=== PATIENT | female | born 1945 | race Caucasian/White ===

== ENCOUNTER 2018-09-20 09:16 | Day surgery (SDC) | payer MEDICARE, OTHER ==
--- NOTE | 2018-09-09 07:02 | HP ---
HISTORY AND PHYSICAL: DATE OF ADMISSION/SURGERY: 09/20/18 DATE OF OFFICE VISIT: 09/08/18 SURGEON: Tanvi Joya MD * (DICTATED BY BRANDT CRAIG) PROCEDURE: Left third and fourth finger trigger release. CHIEF COMPLAINT: Left hand pain. HISTORY OF PRESENT ILLNESS: Ms. Purvis is a 73-year-old female with over 3- month history of painful left hand and triggering of the left third and fourth fingers. PAST MEDICAL HISTORY: Hypertension, high cholesterol, diabetes, GERD, and sleep apnea. PAST SURGICAL HISTORY: Bilateral total knee arthroplasties, gastric Lap-Band, knee arthroscopy, and cataract removal. CURRENT MEDICATIONS: 1. Paroxetine 30 mg a day. 2. Simvastatin 10 mg daily. 3. Centrum Silver. 4. Loratadine 10 mg a day. 5. VESIcare 10 mg a day. 6. Oxybutynin 10 mg a day. 7. Omeprazole 20 mg a day. 8. Fiber daily. 9. Ramipril 5 mg a day. 10. Metformin 500 mg 2 tabs twice a day. 11. Colace. 12. Ibuprofen as needed. 13. Vitamin C. 14. Vitamin B. 15. Vitamin D. ALLERGIES: To KEFLEX and CODEINE. FAMILY HISTORY: Cancer, diabetes, and coronary artery disease. SOCIAL HISTORY: She is a 73-year-old female. She lives with her . She does not smoke or use drugs. She uses occasional alcohol. REVIEW OF SYSTEMS: A complete 14-point review of systems was reviewed with the patient. Positive for diabetes and GERD. She denies history of DVT, PE, hepatitis, or HIV. She also reports a history of a prior MRSA infection. PHYSICAL EXAMINATION GENERAL: She is well developed, well nourished, in no acute distress. She is alert and oriented x3. Pleasant mood and appropriate affect. VITAL SIGNS: She stands 61 inches tall, weighs 194 pounds. Her blood pressure is 120/74. HEENT: Normocephalic, atraumatic. NECK: Supple. No palpable lymph nodes. PULMONARY: The lungs are clear to auscultation bilaterally. CARDIO: Regular rate and rhythm. Strong S1, S2. ABDOMEN: Soft, nontender, nondistended. NEUROLOGICAL: She is alert and oriented x3. MUSCULOSKELETAL: Left upper extremity: The skin is intact. There are no open wounds or abrasions. There is some tenderness to palpation along the A1 audrey of the left third and fourth fingers and some triggering of the left third and fourth fingers. She has full range of motion of the left wrist. She has intact sensation and a 2+ palpable pulse. ASSESSMENT AND PLAN: Ms. Purvis is a 73-year-old female with left third and fourth finger trigger fingers. She has elected to proceed with trigger finger release of the left third and fourth fingers with Dr. Joya. The surgery is scheduled for 09/20/18. Dr. Joya discussed the risks and benefits of the surgery at today's visit and all of her questions were answered. She will follow up with Dr. Joya 7 to 10 days after the surgery. BRANDT CRAIG [id number]/[facility] #: [id number] MTDD
[~2018-09-20 09:16] MED LIST: Acetaminophen TAB* 325 MG PO PRN; Buffered Lidocaine 1% SYRIN* 1 ML/SYRINGE INTRADERM ONE; Famotidine IV* 10 MG/ML 2 ML (20 mg) IV ONE; HYDROcodone/ACETAMIN 5-325 MG* 1 TAB PO PRN; Lactated Ringers 1000 ML Bag* 1,000 ML IV SCH; Naloxone* 0.4 MG/ML 1 ML VIAL IV PRN; Ondansetron INJ* 2 MG/ML VIAL IV PRN; fentaNYL* 50 MCG/ML 2 ML VIAL (100 MCG VIAL) IV PRN; oxyCODONE/Acetamin 5/325 MG* TAB PO PRN
[2018-09-20] MEDS ORDERED: Famotidine IV* 10 MG/ML 2 ML (20 mg) ONE (09:32)
[2018-09-20] MEDS ORDERED: Lidocaine 1% INJ* 10 MG/ML 30 ML SDV ONE (10:23)
[2018-09-20] MEDS ORDERED: Propofol* 10 MG/ML 20 ML BTL ONE (11:33)
[2018-09-20] MEDS ORDERED: fentaNYL* 50 MCG/ML 2 ML VIAL (100 MCG VIAL) ONE (11:33)
[2018-09-20] MEDS ORDERED: Lidocaine 2% PF * 5 ML VIAL ONE (11:33)
[2018-09-20] MEDS ORDERED: Midazolam* 1 MG/ML 2 ML VIAL (2 MG) ONE (11:33)
[2018-09-20 13:34] VITALS: BP 110/62
--- NOTE | 2018-09-20 13:38 | OP ---
CC: Dr. Joya* OPERATIVE NOTE: DATE OF OPERATION: 09/20/18 - [facility] DATE OF : 47 SURGEON: Tanvi Joya MD. FREELANCE WEB DESIGNER: BRANDT Stepehnson. ANESTHESIOLOGIST: Tian Fishman MD. ANESTHESIA: Local MAC. PRE-OP DIAGNOSIS: Trigger finger, left long and ring finger. POST-OP DIAGNOSIS: Trigger finger, left long and ring finger. OPERATIVE PROCEDURE: Left ring and long finger trigger release. ESTIMATED BLOOD LOSS: Zero. TOURNIQUET TIME: Approximately 15 minutes. INDICATIONS FOR PROCEDURE: Aurora is a 73-year-old female with locking and triggering of her long and ring fingers on the left hand. She presents for trigger finger releases. DESCRIPTION OF PROCEDURE: The patient was brought to the operating room, was given a sedation anesthetic and a local infiltration of 10 cc of 1% plain lidocaine in the palm of her left hand. The skin of her left hand and forearm were prepped and draped in the usual sterile fashion. The hand and forearm were exsanguinated and the tourniquet elevated to 250 mmHg. A transverse incision was made, centered over the middle and ring finger A1 pulleys and we dissected bluntly through the subcutaneous tissue. The A1 pulleys were both incised longitudinally and there was a mild amount of tenosynovitis surrounding the tendons. This was debrided. The wound was irrigated and the skin edges reapproximated with 4-0 nylon suture. The wound was dressed with Xeroform, 4x4 , Webril, and an David wrap. The patient tolerated the procedure well and was brought to the recovery room in good condition. [id number]/[facility] #: [id number] [facility]
== END 2018-09-20 13:11 | disposition home or self-care (01) ==
LOC: OREAST 09:16
PROVIDERS: ATTEND Orthopaedic Surgery
DX: M65.332 Trigger finger, left middle finger (principal); M65.342 Trigger finger, left ring finger; E11.9 Type 2 diabetes mellitus without complications; Z79.84 Long term (current) use of oral hypoglycemic drugs; I10 Essential (primary) hypertension; E78.5 Hyperlipidemia, unspecified; G47.33 Obstructive sleep apnea (adult) (pediatric); F41.9 Anxiety disorder, unspecified
CPT/HCPCS: J2250; J2704; J3010

== ENCOUNTER 2020-03-20 05:42 | Inpatient (IN) ==
[2020-03-20] MEDS ORDERED: Dexamethasone IV 4 MG/ML VIAL 1 ml VIAL IV SLOW PU ONE (06:00)
[2020-03-20] MEDS ORDERED: Lactated Ringers 1000 ml BAG 1,000 ML IV SCH (06:00)
[2020-03-20] MEDS ORDERED: Buffered Lidocaine 1% SYRIN 1 ml INTRADERM ONE ×2 (06:00→06:29)
[2020-03-20] MEDS ORDERED: ceFAZolin 2 GM PREMIX 0 GM/0 ML BAG ONE (06:29)
[2020-03-20] MEDS ORDERED: Dexamethasone IV 4 MG/ML VIAL 1 ml VIAL ONE (06:29)
[2020-03-20] MEDS ORDERED: Vancomycin 1,000 MG VIAL ONE (06:35)
[2020-03-20] MEDS ORDERED: Thrombin 5,000 UNITS 1 APPLIC KIT - topical use - TOPICAL ONE (06:35)
[2020-03-20] MEDS ORDERED: Bacitracin INJECTION 50,000 UNITS ONE ×2 (06:36→07:45)
[2020-03-20] MEDS ORDERED: ceFAZolin 1 GM ADVAN 1 GM ADDV.VIAL IVPB ONE ×2 (06:36→06:45)
[2020-03-20] MEDS ORDERED: Bacitracin OINTMENT TUBE ONE (06:36)
[2020-03-20] MEDS ORDERED: Clindamycin 900 MG/D5W BAG 900 MG/50 ML BAG IVPB ONE (07:06)
[2020-03-20] MEDS ORDERED: Midazolam 2 mg/2 ml VIAL 1 mg/ml 2 ml VIAL (2 mg) ONE (07:24)
[2020-03-20] MEDS ORDERED: fentaNYL 250 mcg/5 ml 50 MCG/ML 5 ml VIAL (250 MCG) ONE (07:24)
[2020-03-20] MEDS ORDERED: Rocuronium 50 mg VIAL 10 mg/ml 5 ml VIAL (50 mg) ONE ×2 (07:24→08:13)
[2020-03-20] MEDS ORDERED: Propofol 10 MG/ML 20 ML BTL ONE (07:26)
[2020-03-20] MEDS ORDERED: Bupivacaine 0.25% w/EPI 10 ML SDV ONE (07:41)
[2020-03-20] MEDS ORDERED: Lidocaine 1% w EPI 1:200,000 SDV 30 ML VIAL ONE (07:41)
[2020-03-20] MEDS ORDERED: Bupivacaine 0.5% SDV PF 30ML VIAL ONE (07:42)
[2020-03-20] MEDS ORDERED: CLINDAMYCIN IVPB ONE (07:46)
[2020-03-20] MEDS ORDERED: [UNRECOGNIZED DRUG - OTHER] IVPB ONE (07:46)
[2020-03-20] MEDS ORDERED: Artificial Tear OPHTH.OINT 3.5 GM ONE (07:48)
[2020-03-20] MEDS ORDERED: Naloxone 0.4 mg VIAL 0.4 mg/ml 1 ml VIAL IV PRN (08:30)
[2020-03-20] MEDS ORDERED: HYDROmorphone 1 MG/1 ML SYRINGE IV PRN (08:30)
[2020-03-20] MEDS ORDERED: Ondansetron 4 mg VIAL 2 MG/ML 2 ml VIAL IV PRN ×2 (08:30→11:17)
[2020-03-20] MEDS ORDERED: fentaNYL 100 mcg/2 ml 50 MCG/ML VIAL ONE ×2 (10:12→11:27)
[2020-03-20] MEDS ORDERED: Ondansetron 4 mg VIAL 2 MG/ML 2 ml VIAL ONE ×2 (10:32→11:56)
[2020-03-20] MEDS ORDERED: Magnesium Hydroxide LIQ 30 ML UDC PO PRN (11:17)
[2020-03-20] MEDS: fentaNYL 100 mcg/2 ml 50 MCG/ML VIAL IV PRN ×4 (11:28→12:02)
[2020-03-20] MEDS ORDERED: Morphine 2 MG/ML SYRINGE IV PRN (11:37)
[2020-03-20] MEDS ORDERED: Albuterol 2.5mg/3 ml (0.083%) NEB.SOLN INH PRN (11:43)
[2020-03-20] MEDS ORDERED: Hydrocortisone 2.5% CREAM(NF) 30 GM TUBE TOPICAL PRN (12:09)
[2020-03-20] MEDS: NS 0.9% 1000 ml BAG 1,000 ML IV SCH ×2 (13:17→22:27)
[2020-03-20] MEDS: Acetaminophen IV 1 GM/100ML 100 ML IVPB SCH ×2 (14:14→22:21)
[2020-03-20] MEDS: Nystatin TOP POWDER 15 GM BTL TOPICAL SCH ×2 (14:16→20:59)
[2020-03-20] MEDS: Clindamycin 900 MG/D5W BAG 900 MG/50 ML BAG IVPB SCH (16:24)
[2020-03-20] MEDS: Enoxaparin 40 MG/0.4 ML SYR SUBCUT SCH (16:27)
[2020-03-20] MEDS: SOLIFENACIN 5 MG PO SCH (17:27)
[2020-03-20] MEDS: Cholecalciferol (VIT D3) 1,000 unit TAB PO SCH (20:57)
[2020-03-21] MEDS: Clindamycin 900 MG/D5W BAG 900 MG/50 ML BAG IVPB SCH ×3 (00:58→16:49)
[2020-03-21 05:43] LABS: ABS Lymphocytes 1.7 10^3/ul (1.0-4.8); ABS Monocytes 0.7 10^3/ul (0-0.8); ABS Neutrophils 6.2 10^3/ul (1.5-7.7); Eosinophil % 0.3 %; Hematocrit 30 % (35-47); Hemoglobin 9.9 g/dL (12.0-16.0); Mean Corpuscular HGB Conc 33 g/dL (31-36); Mean Corpuscular Hemoglobin 29 pg (27-31); Mean Corpuscular Volume 89 fL (80-97); Mean Platelet Volume 6.7 fL (7.4-10.4); Platelet Count 190 10^3/uL (150-450); Red Blood Count 3.37 10^6 /uL (3.70-4.87); Red Cell Distribution Width 14 % (10-15); White Blood Count 8.7 10^3/uL (3.5-10.8)
[2020-03-21] MEDS: Acetaminophen IV 1 GM/100ML 100 ML IVPB SCH (05:49)
[2020-03-21 06:00] LABS: Potassium 4.3 mmol/L (3.5-5.0)
[2020-03-21] MEDS ORDERED: NS 0.9% 1000 ml BAG 1,000 ML IV SCH (07:15)
[2020-03-21] MEDS: Vitamin THERAPEUTIC TAB PO SCH (08:44)
[2020-03-21] MEDS: Cholecalciferol (VIT D3) 1,000 unit TAB PO SCH ×2 (08:45→21:10)
[2020-03-21] MEDS: Nystatin TOP POWDER 15 GM BTL TOPICAL SCH ×3 (08:51→21:11)
[2020-03-21] MEDS ORDERED: Senna TAB 8.6 mg TAB PO PRN (09:00)
[2020-03-21] MEDS ORDERED: Magnesium Hydroxide LIQ 30 ML UDC PO PRN (09:01)
[2020-03-21] MEDS: Enoxaparin 40 MG/0.4 ML SYR SUBCUT SCH (16:50)
[2020-03-21] MEDS: SOLIFENACIN 5 MG PO SCH (18:11)
[2020-03-21] MEDS ORDERED: Estradiol VAG CM (NF) 1 APPLIC TUBE VAGINAL SCH (21:00)
[2020-03-22] MEDS: Clindamycin 900 MG/D5W BAG 900 MG/50 ML BAG IVPB SCH ×2 (01:10→07:56)
[2020-03-22 06:16] LABS: ABS Eosinophils 0.5 10^3/ul (0-0.6); ABS Lymphocytes 1.8 10^3/ul (1.0-4.8); ABS Monocytes 0.5 10^3/ul (0-0.8); ABS Neutrophils 3.2 10^3/ul (1.5-7.7); Eosinophil % 8.1 %; Hematocrit 27 % (35-47); Hemoglobin 9.1 g/dL (12.0-16.0); Lymphocyte % 29.8 %; Mean Corpuscular HGB Conc 34 g/dL (31-36); Mean Corpuscular Hemoglobin 30 pg (27-31); Mean Corpuscular Volume 89 fL (80-97); Mean Platelet Volume 7.1 fL (7.4-10.4); Platelet Count 152 10^3/uL (150-450); Red Blood Count 2.99 10^6 /uL (3.70-4.87); Red Cell Distribution Width 15 % (10-15); White Blood Count 5.9 10^3/uL (3.5-10.8)
[2020-03-22 06:33] LABS: Potassium 4.2 mmol/L (3.5-5.0)
[2020-03-22] MEDS: Cholecalciferol (VIT D3) 1,000 unit TAB PO SCH (07:57)
[2020-03-22] MEDS: Nystatin TOP POWDER 15 GM BTL TOPICAL SCH (07:58)
[2020-03-22] MEDS: Vitamin THERAPEUTIC TAB PO SCH (07:58)
[2020-03-22 11:13] VITALS: BP 125/69
== END 2020-03-22 12:55 | disposition home or self-care (01) | DRG 520 ==
LOC: AA 05:42 → SSU 13:14
PROVIDERS: ADMIT Neurological Surgery; ATTEND Neurological Surgery

== ENCOUNTER 2022-06-11 05:53 | Observation (INO) ==
[2022-06-11] MEDS ORDERED: Buffered Lidocaine 1% SYRIN 1 ml INTRADERM ONE ×2 (06:00)
[2022-06-11] MEDS ORDERED: Lactated Ringers 1000 ml BAG 1,000 ML IV SCH ×2 (06:00→11:00)
[2022-06-11] MEDS ORDERED: Clindamycin 900 MG/D5W BAG 900 MG/50 ML BAG IVPB ONE (06:17)
[2022-06-11] MEDS ORDERED: Sevoflurane BOTTLE ONE (06:53)
[2022-06-11] MEDS ORDERED: Phenylephrine IV 10 MG/ML 1 ml VIAL ONE (06:55)
[2022-06-11] MEDS ORDERED: Propofol 10 mg/ml 100 ML BTL 0 ML ONE (06:57)
[2022-06-11] MEDS ORDERED: Ondansetron 4 mg VIAL 2 MG/ML 2 ml VIAL ONE (07:06)
[2022-06-11] MEDS ORDERED: fentaNYL 100 mcg/2 ml 50 MCG/ML VIAL ONE (07:06)
[2022-06-11] MEDS ORDERED: Dexamethasone IV 4 MG/ML VIAL 1 ml VIAL ONE (07:06)
[2022-06-11] MEDS ORDERED: Midazolam 2 mg/2 ml VIAL 1 mg/ml 2 ml VIAL (2 mg) ONE (07:07)
[2022-06-11] MEDS ORDERED: Propofol 10 MG/ML 20 ML BTL ONE ×2 (07:25→13:28)
[2022-06-11] MEDS ORDERED: Lidocaine 2% PF 5 ML VIAL ONE (07:26)
[2022-06-11] MEDS ORDERED: Rocuronium 50 mg VIAL 10 mg/ml 5 ml VIAL (50 mg) ONE (07:26)
[2022-06-11] MEDS ORDERED: Ketamine HCL 50 mg/ml 10 ml VIAL (500 MG) ONE (07:31)
[2022-06-11] MEDS ORDERED: fentaNYL 100 mcg/2 ml 50 MCG/ML VIAL IV PRN ×2 (07:42→12:41)
[2022-06-11] MEDS ORDERED: Naloxone 0.4 mg VIAL 0.4 mg/ml 1 ml VIAL IV PRN ×2 (07:42→12:41)
[2022-06-11] MEDS ORDERED: HYDROmorphone 1 MG/1 ML SYRINGE IV PRN ×2 (07:42→12:41)
[2022-06-11] MEDS ORDERED: Prochlorperazine 5 mg/ml 2 ml VIAL (10 mg) IV PRN ×2 (07:42→12:41)
[2022-06-11] MEDS ORDERED: Acetaminophen IV 1 GM/100ML 1,000 MG/100 ML BAG IV ONE (09:09)
[2022-06-11] MEDS ORDERED: ROPIVACAINE 5 MG/ML 30 ML BTL (0.5%) ONE (09:38)
[2022-06-11] MEDS ORDERED: HYDROmorphone 0.5 MG/0.5 ML SYRINGE ONE (09:47)
[2022-06-11] MEDS ORDERED: Ondansetron 4 mg VIAL 2 MG/ML 2 ml VIAL IV PRN ×2 (10:55→12:41)
[2022-06-11] MEDS ORDERED: Lactulose 30 ml UDC PO PRN ×2 (10:55→12:41)
[2022-06-11] MEDS ORDERED: Ondansetron ODT 4 mg TAB 4 MG TAB PO PRN ×2 (10:55→12:41)
[2022-06-11] MEDS ORDERED: Magnesium Hydroxide LIQ 30 ML UDC PO PRN ×2 (10:55→12:41)
[2022-06-11] MEDS ORDERED: Morphine 2 MG/ML SYRINGE IV PRN ×2 (10:55→12:41)
[2022-06-11] MEDS ORDERED: Clindamycin 600 MG/D5W BAG 600 MG/50 ML BAG IV SCH (11:00)
[2022-06-11] MEDS ORDERED: Fexofenadine 180 mg TAB (NF) PO PRN (11:51)
[2022-06-11] MEDS ORDERED: Dextrose 50% Syringe 50 ml 25 GM/50 ML SYRINGE IV PUSH PRN ×2 (11:56→12:41)
[2022-06-11] MEDS: Lactated Ringers 1000 ml BAG 1,000 ML IV SCH (13:00)
[2022-06-11] MEDS: Clindamycin 600 MG/D5W BAG 600 MG/50 ML BAG IV SCH (16:04)
[2022-06-11] MEDS: Calcium (OSCAL) 500 mg TAB PO SCH (20:47)
[2022-06-11] MEDS ORDERED: CMCS: Simvastatin 10 mg TAB (NF) PO SCH (21:00)
[2022-06-11] MEDS ORDERED: Simvastatin 10 mg TAB (NF) PO SCH (21:00)
[2022-06-11] MEDS ORDERED: Cholecalciferol (VIT D3) 1,000 unit TAB PO SCH (21:00)
[2022-06-11] MEDS ORDERED: Magnesium Hydroxide LIQ 30 ML UDC PO SCH (21:00)
[2022-06-11] MEDS ORDERED: Trospium 20 mg TAB (NF) PO SCH ×2 (21:00)
[2022-06-11] MEDS ORDERED: CALCIUM 600 MG PO SCH (21:00)
[2022-06-11] MEDS: Magnesium Hydroxide LIQ 30 ML UDC PO SCH (21:57)
[2022-06-12] MEDS: Clindamycin 600 MG/D5W BAG 600 MG/50 ML BAG IV SCH ×2 (00:10→08:24)
[2022-06-12] MEDS: Lactated Ringers 1000 ml BAG 1,000 ML IV SCH (00:12)
[2022-06-12 07:36] VITALS: BP 119/67
[2022-06-12] MEDS: Magnesium Hydroxide LIQ 30 ML UDC PO SCH (08:24)
[2022-06-12] MEDS: Calcium (OSCAL) 500 mg TAB PO SCH (08:25)
[2022-06-12] MEDS ORDERED: Vitamin THERAPEUTIC TAB PO SCH ×2 (09:00)
[2022-06-12] MEDS ORDERED: Omeprazole 20 mg CAP (NF) PO SCH (09:00)
[2022-06-12 10:45] LABS: ABS Eosinophils 0.1 10^3/ul (0-0.6); ABS Lymphocytes 1.3 10^3/ul (1.0-4.8); ABS Monocytes 0.9 10^3/ul (0-0.8); ABS Neutrophils 6.3 10^3/ul (1.5-7.7); Eosinophil % 1.1 %; Hematocrit 28 % (35-47); Hemoglobin 9.3 g/dL (12.0-16.0); Mean Corpuscular HGB Conc 33 g/dL (31-36); Mean Corpuscular Hemoglobin 30 pg (27-31); Mean Corpuscular Volume 91 fL (80-97); Mean Platelet Volume 6.2 fL (7.4-10.4); Platelet Count 194 10^3/uL (150-450); Red Blood Count 3.12 10^6 /uL (3.70-4.87); Red Cell Distribution Width 15 % (10-15); White Blood Count 8.6 10^3/uL (3.5-10.8)
[2022-06-12 11:20] LABS: Calcium 9.1 mg/dL (8.6-10.3); Magnesium 1.8 mg/dL (1.9-2.7); Potassium 4.7 mmol/L (3.5-5.0); eGFR CKD-EPI 29.6 (>60)
== END 2022-06-12 12:45 | disposition home or self-care (01) ==
LOC: SSU 05:53 → OR 05:53
PROVIDERS: ADMIT Orthopaedic Surgery Adult Reconstructive Orthopaedic Surgery; ATTEND Orthopaedic Surgery Adult Reconstructive Orthopaedic Surgery